=== PATIENT | female | born 1995 | race Caucasian/White ===

== ENCOUNTER 2017-10-14 12:15 | Emergency (ER) | payer OTHER ==
[~2017-10-14] VITALS: Ht 167.6 cm; Wt 54.0 kg
[2017-10-14 12:23] VITALS: Ht 167.6 cm; Wt 54.0 kg
[2017-10-14 14:23] VITALS: BP 110/68
== END 2017-10-14 14:38 | disposition home or self-care (01) ==
LOC: ED 12:15
DX: J45.901 Unspecified asthma with (acute) exacerbation (principal)
CPT/HCPCS: J7620

== ENCOUNTER 2018-05-28 21:06 | Emergency (ER) | payer OTHER ==
[~2018-05-28] VITALS: Ht 152.4 cm; Wt 45.8 kg
[2018-05-28 21:20] VITALS: Ht 152.4 cm; Wt 45.8 kg
[2018-05-29 00:43] LABS: UA SPECIFIC GRAVITY 1.015 (1.005-1.035); microscopic required? YES; urine erythrocyte TRACE (NEGATIVE)
[2018-05-29 01:07] VITALS: BP 143/63
== END 2018-05-29 02:20 | disposition home or self-care (01) ==
LOC: ED 21:06
PROVIDERS: Emergency Medicine Emergency Medical Services
DX: N39.0 Urinary tract infection, site not specified (principal); R42 Dizziness and giddiness; R53.1 Weakness; J45.909 Unspecified asthma, uncomplicated
CPT/HCPCS: 87491; 87591